=== PATIENT | female | born 1965 | race Caucasian/White ===

== ENCOUNTER 2016-07-21 13:35 | Emergency (ER) | payer MEDICARE, MEDICAID ==
[2016-07-21 13:36] VITALS: BMI 25.4
[2016-07-21 15:30] LABS: BASO # 0.1 K/uL (0.0-0.2); BASO % 1.3 % (0.0-2.0); EOS % 0.4 % (0.0-4.0); HEMATOCRIT 34.9 % (34.0-47.0); LYMPH # 2.5 K/uL (1.0-4.3); MEAN CELL VOLUME 81.4 fL (81.0-99.0); MEAN CORPUSCULAR HEMOGLOBIN 25.8 pg (27.0-31.0); MEAN CORPUSCULAR HGB CONC 31.7 g/dL (33.0-37.0); MONO # 0.4 K/uL (0.0-0.8); NRBC % 0.1 % (0.0-2.0); RED CELL DISTRIBUTION WIDTH 18.3 % (11.5-14.5); WHITE BLOOD COUNT 5.3 K/uL (4.8-10.8)
[2016-07-21 15:39] LABS: CHLORIDE 102 mmol/L (98-107); SODIUM 142 mmol/L (132-148)
[2016-07-21 15:40] LABS: POTASSIUM 3.5 mmol/L (3.6-5.2)
[2016-07-21 15:42] LABS: ALB/GLOB RATIO 1.2 (1.0-2.1); ALCOHOL SERUM < 10 mg/dl (0-10); ALKALINE PHOSPHATASE 55 U/L (38-126); ALT/SGPT 13 U/L (9-52); AST/SGOT 31 U/L (14-36); BILIRUBIN,TOTAL 0.6 mg/dL (0.2-1.3); BLOOD UREA NITROGEN 8 mg/dL (7-17); CALCIUM 8.7 mg/dl (8.6-10.4); CARBON DIOXIDE 25 mmol/L (22-30); GFR AFRICAN-AMERICAN > 60; GLUCOSE,RANDOM 101 mg/dL (65-105); TOTAL PROTEIN 7.9 g/dL (6.3-8.3)
[2016-07-21 15:45] LABS: RBC URINE 17 /hpf (0-3); URINE BILIRUBIN NEGATIVE (NEGATIVE); URINE BLOOD 2+ (NEGATIVE); URINE COLOR Yellow (YELLOW); URINE GLUCOSE (UA) NORMAL (Normal); URINE KETONE NEGATIVE (NEGATIVE); URINE LEUKOCYTE ESTERASE NEG Leu/uL (Negative); URINE PROTEIN NEGATIVE (NEGATIVE); URINE UROBILINOGEN NORMAL mg/dL (0.2-1.0); WBC URINE 3 /hpf (0-5)
[2016-07-21] MEDS ORDERED: Potassium Chloride 20 mEq ER Tab PO STA (15:55)
[2016-07-21] MEDS ORDERED: Potassium Chloride 20 mEq ER Tab PO ONE (16:33)
--- NOTE | 2016-07-21 16:35 | C.PDOC ---
History Of Present Illness 50 y/o female brought to the ED by ambulance for psychiatric evaluation. Patient admits to a history of depression (due to her "thyroid issues") and states her psychiatrist is Dr. Goodrich. Patient denies suicidal/homicidal ideations. HPI is difficult to obtain due to flight of ideas/tangential thoughts. Time Seen by Provider: 07/21/16 14:07 Chief Complaint (Nursing): Psychiatric Evaluation History Per: Patient History/Exam Limitations: other (flight of ideas, tangential ) Current Symptoms Are (Timing): Still Present Suicide/Self Injury Attempted (Context): None Modifying Factor(s): None Severity: Mild Associated Symptoms: denies: Suicidal Thoughts, Suicidal Plan Involuntary Hold By: None Additional History Per: Patient Past Medical History Reviewed: Historical Data, Nursing Documentation, Vital Signs Vital Signs: Last Vital Signs Temp 97.9 F 07/21/16 18:13 Pulse 77 07/21/16 18:13 Resp 16 07/21/16 18:13 BP 117/80 07/21/16 18:13 Pulse Ox 98 07/21/16 18:13 - Medical History PMH: Anxiety, Depression, Gastritis, Hypothyroidism, Malignancy (Breast) Surgical History: No Surg Hx - [facility] Procedures CLOSED ENDOSCOPIC BIOPSY OF LARGE INTESTINE (12/05/13) ESOPHAGOGASTRODUODENOSCOPY [EGD] W/CLOSED BIOPSY (12/05/13) MEDICATION MANAGEMENT (06/23/16) Family History: States: No Known Family Hx - Social History Hx Alcohol Use: No Hx Substance Use: No - Immunization History Hx Influenza Vaccination: No Review Of Systems Except As Marked, All Systems Reviewed And Found Negative. Constitutional: Negative for: Fever, Chills Cardiovascular: Negative for: Chest Pain, Palpitations Respiratory: Negative for: Cough, Shortness of Breath Gastrointestinal: Negative for: Nausea, Vomiting, Abdominal Pain, Diarrhea Psych: Negative for: Suicidal ideation Physical Exam - Physical Exam Appears: Non-toxic, No Acute Distress, Other (anxious ) Skin: Normal Color, Warm, Dry Head: Normacephalic Eye(s): bilateral: Normal Inspection Oral Mucosa: Moist Neck: Supple Cardiovascular: Rhythm Regular Respiratory: Normal Breath Sounds, No Rales, No Rhonchi, No Wheezing Gastrointestinal/Abdominal: Normal Exam, Bowel Sounds, Soft, No Tenderness Extremity: Normal ROM Neurological/Psych: Oriented x3, Other (+tangential speech ) Gait: Steady ED Course And Treatment - Laboratory Results Result Diagrams: 07/21/16 15:25 07/21/16 15:25 O2 Sat by Pulse Oximetry: 99 (on RA) Pulse Ox Interpretation: Normal Progress Note: Blood work, UA, UDS ordered and reviewed. Patient given PO Kdur. Reevaluation Time: 16:00 Reassessment Condition: Improved (Patient has been seen by crisis counselor Tosha, who discussed patient with government contracts manager psychiatrist Dr. Marques and patient's psychiatrist Dr. Torre. Patient has been cleared for discharge from psychiatric standpoint, her private psychiatrist confirms she is not a threat to herself and she has scheduled appt tomorrow with him. Patient instructed to keep her scheduled appt tomorrow, and understands she should return to ED if she has any concerning symptoms.) Disposition Counseled Patient/Family Regarding: Studies Performed, Diagnosis, Need For Followup - Disposition Referrals: Diaz Torre MD [Staff Provider] - Disposition: HOME/ ROUTINE Disposition Time: 18:00 Condition: STABLE Additional Instructions: FOLLOW UP WITH DR TORRE TOMORROW SCHEDULED RETURN TO ER IF YOU HAVE ANY CONCERNING SYMPTOMS Instructions: Depression (ED) Forms: General Discharge Instructions Print Language: [place] ISLAND[place] - POA Present On Arrival: None - Clinical Impression Clinical Impression: Major depression - Scribe Statement The provider has reviewed the documentation as recorded by the Scribe (Chaya Mckeon) Provider Attestation: All medical record entries made by the Scribe were at my direction and personally dictated by me. I have reviewed the chart and agree that the record accurately reflects my personal performance of the history, physical exam, medical decision making, and the department course for this patient. I have also personally directed, reviewed, and agree with the discharge instructions and disposition.
[2016-07-21 18:13] VITALS: BP 117/80; PULSE 77; RESP 16; TEMP 97.9
[2016-07-23 15:54] VITALS: O2SAT 99
== END 2016-07-21 18:21 | disposition home or self-care (01) ==
LOC: C.ER 13:35
DX: F33.9 Major depressive disorder, recurrent, unspecified (principal)
CPT/HCPCS: 80053; 81001; 84703; 85025; 99283; G0480

== ENCOUNTER 2016-10-31 12:21 | Emergency (ER) | payer MEDICARE, MEDICAID ==
[2016-10-31 12:22] VITALS: BMI 25.4
[2016-10-31 12:39] VITALS: RESP 20; TEMP 98.6; O2SAT 98
--- NOTE | 2016-10-31 12:46 | C.PDOC ---
History Of Present Illness 51 y/o female with Hx of depression and multiple medical issues brought to ED by EMS referred from mobile crisis for hallucination and flight of ideas. HPI limited due to patient's clinical condition LIMITED DUE TO CLIN COND REFERRED FROM MOBILE CRISIS FOR HALLUCINATIONS, FLIGHT IDEAS. h/o depression, multiple medical issues ROS LIMITED EXAM MILD DIST NONTOXIC NARD GAIT WNL PSYCH PRESSURED SPEECH CALM COOPERATIVE Time Seen by Provider: 10/31/16 12:44 Chief Complaint (Nursing): Psychiatric Evaluation History Per: EMS History/Exam Limitations: clinical condition Onset/Duration Of Symptoms: Hrs Current Symptoms Are (Timing): Still Present Suicide/Self Injury Attempted (Context): None Associated Symptoms: Paranoia Past Medical History Reviewed: Historical Data, Nursing Documentation, Vital Signs Vital Signs: Last Vital Signs Temp 98.6 F 10/31/16 12:36 Pulse 105 H 10/31/16 12:36 Resp 20 10/31/16 12:36 BP 126/67 10/31/16 12:36 Pulse Ox 98 10/31/16 13:15 - Medical History PMH: Anxiety, Depression, Gastritis, Hypothyroidism, Malignancy (Breast) - [facility] Procedures CLOSED ENDOSCOPIC BIOPSY OF LARGE INTESTINE (12/05/13) ESOPHAGOGASTRODUODENOSCOPY [EGD] W/CLOSED BIOPSY (12/05/13) MEDICATION MANAGEMENT (06/23/16) Family History: States: Unknown Family Hx - Social History Hx Alcohol Use: No Hx Substance Use: No - Immunization History Hx Influenza Vaccination: No Review Of Systems Review Of Systems: ROS cannot be obtained secondary to pt's inabilty to answer questions. Physical Exam - Physical Exam Appears: Non-toxic, Other (Mild distress) Head: Atraumatic, Normacephalic Neck: Normal ROM, Supple Chest: Symmetrical Cardiovascular: Rhythm Regular Respiratory: Normal Breath Sounds, No Rales, No Rhonchi, No Wheezing Extremity: Normal ROM, Capillary Refill (<2 seconds) Neurological/Psych: Oriented x3, Other (Cooperative, Psych pressured, speech calm) Gait: Steady ED Course And Treatment O2 Sat by Pulse Oximetry: 98 (RA) Progress - Re-Evaluation Re-evaluation Note: 10/31/16 13:04 SP CRISIS CRIS BRAVO: PT W HO BIPOLAR. WILL D/W PT'S PSYCHIATRIST DR SANTOS FOR FINAL DISPO 08/11/17 13:34 CLEARED FOR DC BY CRISIS - Data Reviewed Data Reviewed: Old records Disposition Counseled Patient/Family Regarding: Studies Performed, Diagnosis, Need For Followup - Disposition Referrals: YOUR,PSYCHIATRIST [Other] Disposition: HOME/ ROUTINE Disposition Time: 13:34 Condition: GOOD Instructions: Bipolar Disorder (ED) Forms: [employer] (Tongan) - Clinical Impression Clinical Impression: Bipolar disorder - Scribe Statement The provider has reviewed the documentation as recorded by the Margueriteibalthea Deras All medical record entries made by the Margueriteibalthea were at my direction and personally dictated by me. I have reviewed the chart and agree that the record accurately reflects my personal performance of the history, physical exam, medical decision making, and the department course for this patient. I have also personally directed, reviewed, and agree with the discharge instructions and disposition.
[2016-10-31 13:50] VITALS: BP 118/66; PULSE 98
== END 2016-10-31 13:50 | disposition home or self-care (01) ==
LOC: C.ER 12:21
DX: F31.9 Bipolar disorder, unspecified (principal)